=== PATIENT | male | born 1990 | race Caucasian/White ===

== ENCOUNTER 2017-12-27 18:09 | Emergency (ER) | payer OTHER ==
[~2017-12-27] VITALS: Ht 188 cm; Wt 97.5 kg
[~2017-12-27 18:09] MED LIST: CIPROFLOXACIN500 M1 PO; NOHOMEMEDICATIONS; NORCO 5-325 TA1 EACH PO
[2017-12-27 19:15] VITALS: BP 135/75
== END 2017-12-27 19:16 | disposition home or self-care (01) ==
LOC: M.ERS 18:09
DX: S63.691A Other sprain of left index finger, initial encounter (principal); F17.200 Nicotine dependence, unspecified, uncomplicated; Z91.013 Allergy to seafood; W51.XXXA Accidental striking against or bumped into by another person, initial encounter; Y93.61 Activity, american tackle football; Y92.89 Other specified places as the place of occurrence of the external cause; Y99.8 Other external cause status

== ENCOUNTER 2018-03-26 04:55 | Emergency (ER) | payer OTHER ==
[~2018-03-26] VITALS: Ht 185.4 cm; Wt 97.5 kg
[2018-03-26] MEDS ORDERED: TORADOL 10 MG T10 MG PO (05:38)
[2018-03-26] MEDS ORDERED: NORCO 5-325 TA1 EACH PO (05:38)
[2018-03-26] MEDS ORDERED: PENICILLIN V P500 MG PO (05:38)
[2018-03-26 06:20] VITALS: BP 120/60
== END 2018-03-26 06:20 | disposition home or self-care (01) ==
LOC: M.ERS 04:55
DX: K02.9 Dental caries, unspecified (principal); Z91.013 Allergy to seafood

== ENCOUNTER 2020-03-09 15:52 | Emergency (ER) | payer OTHER ==
[~2020-03-09] VITALS: Ht 185.4 cm; Wt 102.1 kg
[~2020-03-09 15:52] MED LIST changes: +PENICILLIN V P500 MG PO; +TORADOL 10 MG T10 MG PO
[2020-03-09] MEDS ORDERED: MEDROLDOSEPACK PO (18:59)
[2020-03-09] MEDS ORDERED: NORCO 5-325 TA1 EAC1 PO (18:59)
[2020-03-09] MEDS ORDERED: ZANAFLEX4 MG PO (18:59)
[2020-03-09 19:32] VITALS: BP 122/63
== END 2020-03-09 19:32 | disposition home or self-care (01) ==
LOC: M.ERS 15:52
DX: M51.26 Other intervertebral disc displacement, lumbar region (principal); M54.42 Lumbago with sciatica, left side; M54.41 Lumbago with sciatica, right side; K50.90 Crohn's disease, unspecified, without complications; F17.210 Nicotine dependence, cigarettes, uncomplicated; Z91.013 Allergy to seafood

== ENCOUNTER 2020-09-17 11:08 | Emergency (ER) | payer OTHER ==
[~2020-09-17] VITALS: Ht 182.9 cm; Wt 104.3 kg
[~2020-09-17 11:08] MED LIST changes: +MEDROLDOSEPACK PO; +NORCO 5-325 TA1 EAC1 PO; +ZANAFLEX4 MG PO
[2020-09-17] MEDS ORDERED: KEFLEX500 M1 PO (12:08)
[2020-09-17 12:20] VITALS: BP 145/91
== END 2020-09-17 12:20 | disposition home or self-care (01) ==
LOC: M.ERS 11:08
DX: S01.112A Laceration without foreign body of left eyelid and periocular area, initial encounter (principal); K50.90 Crohn's disease, unspecified, without complications; F17.210 Nicotine dependence, cigarettes, uncomplicated; Z91.013 Allergy to seafood; W22.8XXA Striking against or struck by other objects, initial encounter; Y93.89 Activity, other specified; Y92.89 Other specified places as the place of occurrence of the external cause; Y99.8 Other external cause status